=== PATIENT | male | born 1975 | race Caucasian/White ===

== ENCOUNTER 2021-07-15 11:23 | Emergency (ER) | payer OTHER ==
[~2021-07-15] VITALS: Ht 182.9 cm; Wt 102.1 kg
--- NOTE | 2021-07-15 12:55 | NUR ---
ARRIVAL PRESENTED TO ED RM#6 AMBULATORY WITH C/O PRODUCTIVE COUGH (YELLOW), SORE THROAT, CONGESTION, COURTNEY/PRESSURE, FEVER/CHILLS X [address] WOOD NOTIFIED OF PATIENT ARRIVAL.
[2021-07-15 13:07] VITALS: BP 146/95
--- NOTE | 2021-07-15 13:17 | ER.PDOC ---
General Chief Complaint: Cough/Congestion Stated Complaint: SORE THROAT/COUGH/CONGESTED/FEVER Time seen by MD: 13:30 Source: patient Exam Limitations: no limitations History of Present Illness Timing/Duration: gradual Context: recent forgeign travel Severity: moderate Associated Symptoms: fever/chills, runny nose, sinus pain/drainage, sore throat, hoarseness, cough, mild SOB Prior symptoms/Treatment: Similar symptoms previous Allergies: Coded Allergies: No Known Allergies (Unverified , 07/15/21) All Other Systems: Reviewed and Negative Past Medical History Medical History: asthma, hypertension Surgical History: no surgical history Reviewed Nursing Reviewed: Vital Signs, Abn. Noted Physical Exam General Appearance: alert, no distress Eye: eyes nml inspection, lids & conjunct. nml, PERRL, no nystagmus Ear: ear nml Nose: nose nml Throat: pharyngeal erythema, tonsillar edudate Neck: nml inspection, supple Respiratory: no resp.distress, breath sounds nml Abdomen: non-tender, no organomegaly CVS: reg rate & rhythm, heart sounds nml Skin: color nml, no rash, warm/dry Extremities: non-tender, nml ROM, no pedal edema NEURO/PSYCH: oriented x 3, CN's nml as tested, motor nml, sensation nml, mood/affect nml Results/Orders Results/Orders Orders - SAMMI WOOD MD Covid19 Antigen Jeannine Genesis (07/15/21 13:10) Strep Screen (07/15/21 13:10) Influenza A&B (07/15/21 13:10) Vital Signs Date Time Temp Pulse Resp B/P (MAP) Pulse Ox O2 Delivery O2 Flow Rate FiO2 07/15/21 13:07 98.0 102 19 96 07/15/21 13:07 98.0 102 19 07/15/21 13:07 98.0 102 19 146/95 (112) 96 Room Air Laboratory Tests Test 07/15/21 13:00 Influenza Type A Antigen NEGATIVE (NEG) Influenza Type B Antigen NEGATIVE (NEG) SARS-CoV-2 Antigen (Rapid) NEGATIVE (NEGATIVE) Group A Streptococcus Screen NEGATIVE (NEGATIVE) ER DEPART Departure Time of Disposition: 14:00 Disposition: 01 HOME / SELF CARE / HOMELESS Impression: Primary Impression: Acute pharyngitis Condition: Stable Referrals: PCP,UNKNOWN (PCP) PRIMARY CARE PROVIDER Duration or Time Spent with Pa: 14m SAMMI WOOD MD Jul 15, 2021 13:17
== END 2021-07-15 14:04 | disposition home or self-care (01) ==
LOC: ER 11:23
DX: J02.9 Acute pharyngitis, unspecified (principal); I10 Essential (primary) hypertension; J45.909 Unspecified asthma, uncomplicated; Z20.822 Contact with and (suspected) exposure to COVID-19
CPT/HCPCS: 87070; 87077; 87186; 87426; 87804; 87880; 99283